=== PATIENT | female | born 1960 | race Two or more races ===

== ENCOUNTER 2019-01-23 19:23 | Emergency (ER) | payer OTHER ==
[2019-01-23 19:56] LABS: % BASOPHILS 0.9 % (0.0-2.0); % EOSINOPHILS 1.7 % (0.0-5.0); % LYMPHOCYTES 30.2 % (20.0-50.0); % MONOCYTES 8.3 % (2.0-10.0); % NEUTROPHILS 58.9 % (40.0-80.0); BASOPHILE ABSOLUTE 0.1 Th/cumm (0-0.2); EOSINOPHILE ABSOLUTE 0.1 Th/cmm (0.1-0.4); HEMATOCRIT 39.2 % (41.0-60); HEMOGLOBIN 13.2 gm/dL (12-16); LYMPHOCYTE ABSOLUTE 2.3 Th/cmm (1.5-3.0); MEAN CORPUSCULAR HEMOGLOBIN 29.3 pg (27.0-31.0); MEAN CORPUSCULAR HGB CONC 33.6 pg (28.0-36.0); MEAN PLATELET VOLUME 7.7 fl; MONOCYTE ABSOLUTE 0.6 Th/cmm (0.3-1.0); NEUTROPHILE ABSOLUTE 4.5 Th/cmm (1.8-8.0); PLATELET COUNT 203 Th/cmm (150-400); RED CELL DISTRIBUTION WIDTH 12.5 % (11.5-20.0); WHITE BLOOD COUNT 7.6 Th/cmm (4.8-10.8)
[2019-01-23 20:11] LABS: BUN - UREA NITROGEN 14 mg/dL (7-25); CALCIUM SERUM 9.3 mg/dL (8.6-10.3); CARBON DIOXIDE 26.7 mEq/L (21.0-31.0); CHLORIDE 105 mEq/L (98-107); CREATININE - SERUM 0.7 mg/dL (0.6-1.2); GFR AFRICAN-AMERICAN > 60.0 ml/min (>90); GFR NON AFRICAN-AMERICAN > 60.0 ml/min; GLUCOSE 105 mg/dL (70-105); POTASSIUM SERUM 3.7 mEq/L (3.5-5.1); SODIUM SERUM 139 mEq/L (136-145)
--- NOTE | 2019-01-23 21:11 | ED Physician Chart ---
ED Chief Complaint/HPI - Patient Information Date Seen:: 01/23/19 Time Seen:: 21:11 Chief Complaint:: Sore throat and voice change History of Present Illness:: 58 yo female developed sore throat, voice change for 5 days, cough for 3 days, bilateral ear pain for 1 day. Pt denied fever or chills. Allergies:: Allergies Allergy/AdvReac Type Severity Reaction Status Date / Time No Known Allergies Allergy Verified 01/23/19 19:35 Vitals:: Vital Signs - 8 hr 01/23/19 19:36 Temp 98.5 F HR 61 RR 16 BP 164/99 O2 Sat % 97 ED Review of Systems - Review of Systems General/Constitutional: No fever, No chills Skin: No rash Head: No headache Eyes: No pain ENT: Earache, Sore throat Neck: Neck pain Cardio Vascular: No chest pain Pulmonary: No SOB, Cough, No sputum GI: No nausea, No vomiting, No pain Musculoskeletal: No bone or joint pain Neurological: No syncope, No focal symptoms ED Past Medical History - Past Medical History Past Medical History: No significant medical hx Social History: Non Smoker, No Alcohol, No Drug Use Surgical History: None Family Medical History - Family Member Mother History Unknown: Yes Living Status: Still Living ED Physical Exam - Physical Examination General/Constitutional: Awake, Alert Head: Atraumatic Eyes: PERRL Skin: No skin lesions ENMT: TM canals nl, Nasal exam nl Other ENMT comments:: Oropharyngeal erythema, hoarse sound Neck: No nuchal rigidity Respiratory: Nl effort/Exclusion, No Wheeze/Rhonchi/Rales Cardio Vascular: RRR, No murmur, gallop, rubs, NL S1 S2 GI: No tenderness/rebounding/guarding Extremities: normal strength in all extremities Neuro/Psych: Normal motor strength ED Labs/Radiology/EKG Results - Lab Results Results: Laboratory Tests 01/23/19 01/23/19 19:51 19:51 WBC 7.6 RBC 4.50 Hgb 13.2 Hct 39.2 L MCV 87.0 MCH 29.3 MCHC Differential 33.6 RDW 12.5 Plt Count 203 MPV 7.7 Neutrophils % 58.9 Lymphocytes % 30.2 Monocytes % 8.3 Eosinophils % 1.7 Basophils % 0.9 Sodium 139 Potassium 3.7 Chloride 105 Carbon Dioxide 26.7 Anion Gap 11.0 BUN 14 Creatinine 0.7 Est GFR ( Amer) > 60.0 Est GFR (Non-Af Amer) > 60.0 BUN/Creatinine Ratio 20.0 Glucose 105 Calcium 9.3 ED Assessment - Assessment General Assessment: Upper respiratory infection Laryngitis Assessment/Comments:: Katya Davidson ED Septic Shock - . Is Septic Shock (SBP<90, OR Lactate>4 mmol\L) present?: No - <6hrs of presentation: Vital Signs: Vital Signs - 8 hr 01/23/19 19:36 Temp 98.5 F HR 61 RR 16 BP 164/99 O2 Sat % 97 ED Reassessment (Disposition) - Reassessment Reassessment Condition:: Improved - Aftercare/Follow up Instructions Notes:: F/u PCP or return to ER if symptoms worsen Medication Prescribed:: Tamiflu 75 mg bid #10 - Patient Disposition Discharge/Transfer:: Home
[2019-01-23 21:12] LABS: INF A SCREEN NEG FOR INF A; INF B SCREEN NEG FOR INF B
[2019-01-23] MEDS ORDERED: Albuterol/Ipratropium Neb 3 ML AERS HHN ONE ×2 (21:23→21:35)
[2019-01-23] MEDS ORDERED: Guaifenesin DM 10 ML UDC PO ONE (21:24)
[2019-01-23] MEDS ORDERED: Codeine /Guaifenesin 200mg-20mg/10 mL UDC ONE (21:28)
[2019-01-23] MEDS ORDERED: Guaifenesin DM 10 ML UDC ONE (21:31)
== END 2019-01-23 21:58 | disposition home or self-care (01) ==
LOC: ER 19:23
DX: J04.0 Acute laryngitis (principal); J06.9 Acute upper respiratory infection, unspecified
CPT/HCPCS: 36415-UA; 80048-TC; 85025-TC; 87804-TC; 94640; Z7502